=== PATIENT | male | born 1960 | race African-American/Black ===

== ENCOUNTER → 2020-08-06 | Outpatient (CLI) | payer OTHER ==
--- NOTE | 2020-08-07 04:53 | RAD ---
Chest PA and lateral: Reason for examination: Positive TB skin test. The heart size is normal. Mediastinum is unremarkable. Lung harvey show some linear density in the mid left lung field which may reflect some atelectasis or scarring. No other infiltrates or pleural effusions are seen. No acute bony abnormalities are seen. Impression: Linear densities posteriorly representing atelectasis or scarring at the mid left lung field. No other focal abnormality seen in the chest. Electronically signed by: Juju Blunt MD (08/07/2020 4:50 AM) AURY
== END | disposition home or self-care (01) ==
LOC: RAD 16:52
PROVIDERS: ATTEND Internal Medicine
DX: R76.11 Nonspecific reaction to tuberculin skin test without active tuberculosis (principal)
CPT/HCPCS: 71046